=== PATIENT | female | born 1965 | race Caucasian/White ===

== ENCOUNTER 2024-05-06 07:47 | Day surgery (SDC) | payer OTHER ==
[~2024-05-06] VITALS: Ht 162.6 cm; Wt 73.0 kg
[2024-05-06] MEDS ORDERED: BENZOCAINE 20% 0.5mL UD SPRAY MM ONE (09:33)
[2024-05-06] MEDS ORDERED: MEPERIDINE 100 MG INJ. 100 MG/ML VIAL ONE (09:33)
[2024-05-06] MEDS ORDERED: MIDAZOLAM HCL 5 MG/5 ML VIAL ONE (09:33)
[2024-05-06 09:49] VITALS: O2SAT 99
[2024-05-06 17:01] VITALS: BP_SYST 110; PULSE 55; RESP 18
== END 2024-05-06 11:25 | disposition home or self-care (01) ==
LOC: SDS 07:47 → SMU 08:07 → SDS 11:25
PROVIDERS: ATTEND Internal Medicine
DX: R10.9 Unspecified abdominal pain (principal); K29.50 Unspecified chronic gastritis without bleeding; K21.9 Gastro-esophageal reflux disease without esophagitis; R14.0 Abdominal distension (gaseous); E11.9 Type 2 diabetes mellitus without complications; Z79.84 Long term (current) use of oral hypoglycemic drugs; Z79.899 Other long term (current) drug therapy
CPT/HCPCS: 43239; 88305; 88312; 88313; G0378; J2250; J2175